=== PATIENT | female | born 1950 | race Caucasian/White ===

== ENCOUNTER 2023-11-26 09:30 | Outpatient (REF) | payer MEDICARE, OTHER, SELFPAY ==
--- NOTE | ~2023-11-26 | XR_ITS ---
EXAMINATION: XR LUMBOSACRAL SPINE BENDING FILMS ONLY CLINICAL INFORMATION: Lumbar spondylolisthesis. COMPARISON: None available. TECHNIQUE: Lateral views of the cervical spine are obtained in neutral, flexion and extension positions, together with a spot lateral view of the lumbosacral junction. FINDINGS: There is bony demineralization. At T12-L1, there is mild disc space narrowing. At L4-5, there is a 1.0 cm anterolisthesis. At L5-S1, there is marked disc space narrowing. The remaining disc spaces are relatively well-maintained. No acute fracture or spondylolisthesis seen. There is multi-level thoracolumbar spondylosis. There is facet arthropathy, most pronounced at L4-5 and L5-S1. The paravertebral soft tissues are unremarkable. XR/XR lumbar spine bending only IMPRESSION: 1. There is mild degenerative disc disease at T12-L1, and marked degenerative disc disease is seen at L4-5 and L5-S1. Particular note is made of a 1.0 cm, grade 1 anterolisthesis at L4-5. 2. There is facet arthropathy at L4-5 and L5-S1. Electronically signed by: Aly Burger MD 12/25/2023 05:41 PM EDT
== END 2023-11-26 09:31 | disposition home or self-care (01) ==
LOC: HO.XRAY 09:30
PROVIDERS: PCP Internal Medicine; Visit Provider Internal Medicine
DX: M43.16 Spondylolisthesis, lumbar region (principal)
CPT/HCPCS: 72120; 99212

== ENCOUNTER 2023-11-26 09:30 | Outpatient (AMB) | payer MEDICARE, OTHER, SELFPAY ==
--- NOTE | 2023-11-26 09:31 | A.OFFVIS_ITS ---
Vital Signs 11/26/23 09:32 Height 5 ft 6 in Weight 138 lb BMI 22.3 BP 158/80 H Blood Pressure Location Lt brachial Position Sitting Respiration 14 Pulse 80 Pulse Source Pulse Oximeter Pulse Oximetry (%) 98 Oxygen Delivery Method Room Air Intake Visit Reasons: back pain/eval for KELIN Allergies Sulfa (Sulfonamide Antibiotics) Allergy (Intermediate, Verified 11/26/23 09:35) Hives codeine Adverse Reaction (Severe, Verified 11/26/23 09:35) Nausea Medication List - Last Reconciled 11/26/23 by Ileana Hoff LPN acetaminophen 1,000 mg PO BID cholecalciferol (vitamin D3) (Vitamin D3) 50 mcg PO DAILY fluticasone propionate 50 mcg/actuation intranasal levothyroxine 75 mcg PO DAILY lorazepam mg PO losartan 50 mg PO DAILY metformin ER 500 mg PO TID pravastatin 20 mg PO DAILY ropinirole 1 mg PO BEDTIME trazodone 50 - 150 mg PO BEDTIME PRN HPI HPI back pain/eval for KELIN: Details: 73-year-old female who presents today to the office for back pain and evaluation for epidural steroid injection. She met Dr. Blake Dickens, a [place] orthopedic surgeon, in September 2023 for sciatica pain that is bothersome. She states that Dr. Dickens recommended mi nimally invasive surgery after reviewing the MRI scan result. She had physical therapy for two months for right-sided sciatica in August-September 2023 that provided 40-50% relief. She is not working in her yard. She wants to discuss other possible interventions or conservative treatment options.? Review of Systems Const All systems reviewed & are unremarkable except as noted in HPI and below Physical Exam Vital Signs: Last Vital Signs Pulse 80 11/26/23 09:32 Resp 14 11/26/23 09:32 BP 158/80 H 11/26/23 09:32 Pulse Ox 98 11/26/23 09:32 Oxygen Delivery Method Room Air 11/26/23 09:32 BMI result Body Mass Index 22.3 General: Appears afebrile. Alert and oriented. Mood and affect appropriate. Follows and participates in conversation appropriately. Respiratory effort is unlabored. Able to transition from sit to stand unassisted. Ambulates with bilaterally normal heel strike and toe off. Forward flexion does not reproduce pain. Lumbar extension reproduces right lower back pain. Straight leg raises are negative on both sides. Results Reviewed Results Reviewed: MR SPINE LUMBAR without CONTRAST FINDINGS: Uvwn-qd-bltihprb multilevel degenerative disc disease with loss of disc height and disc desiccation seen diffusely throughout the lumbar spine. Grade 1 anterolisthesis of L4 over L5. Paraspinal soft tissues and visualized portions of the abdomen and pelvis are unremarkable. At L1-2 there is no significant disc herniation or protrusion. No central canal or neural foraminal stenosis is demonstrated. At L2-3 there is no significant disc herniation or protrusion. No central canal or neural foraminal stenosis is demonstrated. At L3-4 there is no significant disc herniation or protrusion. No central canal or neural foraminal stenosis is demonstrated. At L4-5 Grade 1 anterolisthesis and concentric disc bulge with huxgqbsp-rj-xzwtcx canal stenosis, at least moderate right and oprv-lm-mpnmkyni left foraminal narrowing. Facet arthropathy seen at this level. At L5-S1 concentric disc bulge with mild canal narrowing, mild right and severe left foraminal narrowing. IMPRESSION: 1. Lruc-id-krkghris multilevel degenerative disc disease with loss of disc height and disc desiccation seen diffusely throughout the lumbar spine. 2. Grade 1 anterolisthesis of L4 over L5. Vertebral heights are preserved. 3. At L4-5 Grade 1 anterolisthesis and concentric disc bulge with ugoczkez-se-fbdrqn canal stenosis, at least moderate right and fzrx-lv-ddiwubvs left foraminal narrowing. Facet arthropathy seen at this level. 4. At L5-S1 concentric disc bulge with mild canal narrowing, mild right and severe left foraminal narrowing. 5. At remaining levels, canal and foraminal narrowing are mild/bdtz-yw-mepxmvhu. 6. No STIR signal abnormality to suggest bone marrow edema, soft tissue or ligamentous injury. Assessment & Plan Assessment & Plan (1) Spondylolisthesis, lumbar region: Code(s): M43.16 - Spondylolisthesis, lumbar region Category: Medical (2) Lumbar radicular pain: Code(s): M54.16 - Radiculopathy, lumbar region Category: Medical Plan I ordered an flex-ex x-ray of the lumbar spine today for further evaluation. The patient will head to the radiology department and get it done. I would like to try a combination of physical therapy and injections prior to seeking a surgical solution. I advised her to continue physical therapy as tolerated. We will schedule her for a right L4 transforaminal epidural steroid injection. Discussed the risks and benefits of the procedure with the patient in detail. All questions were answered. The patient is on board with the plan. If the combination of physical therapy and injections is not helpful, we can consider fusion surgery as an option. Justification for interventional therapy: ? Patient with average pain > 6/10 ? Patient has exhausted conservative therapy ? Actively performing physical therapy. . Patient has a good understanding of their pain condition and has appropriate mental and social support Scribed for Dr. Emerson by Ronald Mcdaniel, medical coding instructor, on 11/26/2023. I, Dr. Emerson, have personally reviewed and agree with the information entered by the scribe. Orders: Orders XR lumbar spine bending only 11/26/23 M43.16 - Spondylolisthesis, lumbar region Coding Level of Care Code Est Pt Level 4 (28700) Diagnoses Spondylolisthesis, lumbar region M43.16 Lumbar radicular pain M54.16
[2023-11-26 09:32] VITALS: BP 158/80; PULSE 80; RESP 14; O2SAT 98; BMI 22.3
== END 2023-11-26 10:19 | disposition home or self-care (01) ==
LOC: HO.PMC 09:30
PROVIDERS: PCP Internal Medicine; Visit Provider Internal Medicine
DX: M43.16 Spondylolisthesis, lumbar region (principal); M54.16 Radiculopathy, lumbar region
CPT/HCPCS: 99214